=== PATIENT | female | born 1960 | race Asian ===

== ENCOUNTER → 2023-11-27 08:08 | Outpatient (REF) | payer OTHER, SELFPAY | LOC: RCS 08:08 | PROVIDERS: ATTENDING PHYSICIAN Internal Medicine | DX: I45.10 Unspecified right bundle-branch block (principal); C50.911 Malignant neoplasm of unspecified site of right female breast | CPT/HCPCS: 93306; 93356 ==

== ENCOUNTER → 2024-04-01 10:30 | Outpatient (REF) | payer OTHER, SELFPAY | LOC: RCS 10:30 | PROVIDERS: ATTENDING PHYSICIAN Internal Medicine; FAMILY PHYSICIAN Family Medicine | DX: I25.10 Atherosclerotic heart disease of native coronary artery without angina pectoris (principal); R55 Syncope and collapse; R07.9 Chest pain, unspecified; R06.02 Shortness of breath | CPT/HCPCS: 93017; 93350 ==

== ENCOUNTER 2024-12-12 22:00 | Inpatient (IN) | payer OTHER, SELFPAY ==
[2024-12-12] VITALS (7 sets, daily range): BP systolic 96–161; BP diastolic 63–85; BMI 27.0; BMI 23.0
[2024-12-12 16:57] LABS: Hematocrit 35.8 % (37.0-47.0); Hemoglobin 11.8 g/dL (12.0-16.0); Mean Corp Hgb Conc. 33.0 g/dL (33.0-37.0); Mean Corpuscular Volume 96.8 fL (81.0-99.0); Nucleated Red Blood Cells % 0 %; Platelet Count 220 10^3/uL (130-400); Red Cell Dist. Width 12.3 % (11.5-14.5)
[2024-12-12 17:12] LABS: ALT (SGPT) 22 U/L (0-35); AST (SGOT) 22 U/L (14-36); Albumin 4.1 g/dl (3.5-5.0); Alkaline Phosphatase 44 U/L (38-126); Blood Urea Nitrogen 18 mg/dl (7-17); Calcium 8.6 mg/dl (8.4-10.2); Carbon Dioxide 27 mmol/L (22-30); Chloride 108 mmol/L (98-107); Glucose 106 mg/dl (70-99); Potassium 3.6 mmol/L (3.5-5.1); Sodium 139 mmol/L (135-145); Total Protein 6.5 g/dl (6.3-8.2); eGFR > 60.00
--- NOTE | 2024-12-12 19:23 | ED.GENMED ---
History of Present Illness
General
Chief Complaint: Bowel Problem
Source: patient
Exam Limitations: none
Time Seen by Provider: 12/12/24 18:44
Nursing documentation reviewed up to this point in time: agreed with
History of Present Illness
History of Present Illness:
Patient is a 64-year-old female with history of diabetes, vertigo, stage III breast cancer, history of Katy esophagitis presents to the ER for evaluation of black stools. She reports she started with diarrhea about 4 days ago which was black in
color diarrhea stopped she still has dark stool. She did have dark stool today. She does complain of some abdominal cramping. Patient also reports she does feel very weak and not herself .
she reports she had this black stool years ago when she was being treated for breast cancer with chemotherapy back in 2020. She believes she had a colonoscopy which showed bleeding polyps at that time .
She denies any history of reflux. She is not on blood thinners.
Past History
Past History
ED Past Medical History: HTN, Hypercholesterolemia, NIDDM, Hypothyroidism and Other (Breast cancer, vertigo, neuropathy)
ED Past Surgical History: Other (surgery for breast cancer)
Social History
Tobacco: Non-smoker
Alcohol: None
Drug: None
Personal:
Living: with family
Employment: Not employed
Family History
Family History: Other (Her father had a stroke)
Phy Exam
General Physical Exam
General Presentation: no apparent distress
General age: appears stated age
General Skin: warm and dry
General Habitus: normal
General Mental: alert
General Hydration: appears well hydrated
Gastrointestinal Exam
Gastrointestinal Exam: normal bowel sounds, non tender, soft and other (rectal done : no stool in vault )
Musculoskeletal Exam
Musculoskeletal Exam: full ROM
Skin Exam
Skin Exam: normal color and warm/dry
Psychiatric Exam
Psychiatric Exam: normal mood/affect
Course
Orders/Labs/Results
Orders:
Orders
12/12/24 Breakfast
Clear Liquid
At Your Request: Limited Participation
Does patient need a safe tray?: No
12/12/24 16:41
Complete Blood Count/With Diff Urgent
Comprehensive Metabolic Panel Urgent
12/12/24 21:10
Pantoprazole [Protonix IV] 40 mg IV NOW STA
12/12/24 21:15
0.9% Sodium Chloride 1000 ml [Nss] 1,000 ml IV 999 mls/hr
Pantoprazole 80 mg/100 ml Nss [Protonix] 80 mg in 100 ml IV Q10H
12/12/24 21:24
Electrocardiogram (*1) Stat
Reason for Study: Other
Other Reason for Exam: chest pain
EKG- Treatment ONCE
12/12/24 21:44
Admit/Transfer Patient As Directed
Co-Sign Provider:
Level of Care: Inpatient admission
Assign to:: Medical/Surgical
Physician / Group: Misael
Diagnosis: GI Bleed
Reason for Hospitalization: GI Consult
Expected length of stay greater than two midnights?: Yes
ELOS- Estimated Length of Stay in days: 3
I certify the patient meets the requirements for IP care: Yes
PRN Pain Medication Management As Directed
May give lesser potent ordered pain med per pt: Yes
preference::
Protocol:: Medication orders for pain may be administered in a
manner that supports deferring to patient preference
when the pt is:
- Requesting an ordered lesser potent pain medication.
Least to most potent pain medications are defined
as: acetaminophen < NSAID < tramadol < opioids
(morphine, oxycodone, hydromorphone).
- Requesting a lesser dose of the same medication IF
ORDERED.
- Requesting a less intrusive route of administration
if both routes are prescribed by the provider (PO <
IV).
12/12/24 21:46
Code Status As Directed
Resuscitation Status: Full Code
12/12/24 22:58
Acetaminophen [Tylenol] 650 mg PO Q4HPRN PRN
Ondansetron Injectable [Zofran] 4 mg IV Q6HPRN PRN
12/12/24 22:58
Activity As Directed
Activity Level: Out of Bed- Chair
Hemetest Stools As Directed
Comment: Notify Physician of any positive results; May Stop if Negative x 3
I&O [Intake/ Output] As Directed
Frequency: q12h
Pneumatic Compression Sleeves As Directed
Type: Knee high
Vital Signs As Directed
Frequency: Per unit guidelines
DX Deep Vein Thrombosis Video Routine
12/13/24 Breakfast
NPO
Allow oral meds: Yes
Allow clear liquids: 4hrs prior to procedure
Comment: may have unrestricted clear liquid up to 4 hrs prior to scheduled procedure
Basic Metabolic Panel IN AM
Complete Blood Count/No Diff IN AM
Hgba1c [Glycohemoglobin (HgbA1c)] IN AM
Levothyroxine [Synthroid] 100 mcg PO ThSa@0600
12/13/24 08:00
Pantoprazole [Protonix IV] 40 mg IV Q12H
12/14/24 06:00
Levothyroxine [Synthroid] 50 mcg PO SuMoTuWeFr@0600
Abnormal Lab Results
12/12/24
16:41
RBC 3.70 L 10^6/uL
(4.20-5.40)
Hgb 11.8 L g/dL
(12.0-16.0)
Hct 35.8 L %
(37.0-47.0)
MCH 31.9 H pg
(27.0-31.0)
Chloride 108 H mmol/L
(98-107)
BUN 18 H mg/dl
(7-17)
Glucose 106 H mg/dl
(70-99)
12/12/24 16:41
12/12/24 16:41
Vital Signs
Initial and Last Documented VS:
Initial Vital Signs
Temp Pulse Resp BP Pulse Ox
98.2 F 72 16 145/78 98
12/12/24 16:33 12/12/24 16:33 12/12/24 16:33 12/12/24 16:33 12/12/24 16:33
Last Documented Vital Signs
Temp Pulse Resp BP Pulse Ox
98.0 F 72 18 161/85 96
12/12/24 23:07 12/12/24 23:07 12/12/24 23:07 12/12/24 23:07 12/12/24 23:07
Towboat Captain consulted with Physician
Towboat Captain consulted with physician?: Yes (jenny )
MDM/Problems Addressed
Differential Diagnosis Includes:
Not limited to anemia, GI bleed
MDM/Problems Addressed:
As documented patient is a 62-year-old female presenting with weakness and black stools for the past 4 days. She is not actively bleeding and there is no obvious stool rectal exam however with complaints of weakness and black stools would recommend
admission. Case discussed ED physician IV Protonix bolus and drip ordered.
*Pulse Oximetry
SaO2: 97
Oxygen Mode of Delivery: Room air
Patient hypoxic: no
*EKG
Interpreted by ED Provider?: Yes
Heart Rate: 73
Rate: normal
Rhythm: sinus
Ischemia: non-specific ST changes
*Critical Care Note
Total Time (30-74mins, 75-104mins- exclusive of procedures): Not Applicable
Data Reviewed
Review of Other/Old Records Reveals: Labs and Other (Previous endoscopy from 2020 reviewed)
Source: patient
ED Attending Note
-
Portions of this chart may have been created with voice recognition software.� Occasional wrong word or��sound alike� substitutions may have occurred due to the inherent limitations of voice recognition software.
Discharge Plan
Departure
Patient Disposition: Admit
Date of Disposition: 12/12/24
Time of Disposition: 21:21
Admit to: Telemetry
Admit to doctor: hospitalist
Presentation/result/management discussed w/ accepting MD/DO: Hospitalist
Patient with high blood pressure during this ER visit?: No
Condition: Fair
Covid-19: Not Applicable
Discharge Problem:
Black stool, Weakness
Interventions
Interventions:
*Risk Screen - Suicide Last Done: 12/12/24 16:33
*General Assessment Last Done: 12/12/24 18:06
*Neglect/Abuse Screening Last Done: 12/12/24 16:33
*ED- Fall Risk Assessment Last Done: 12/12/24 18:06
*ED COVID-19 Vaccine History Last Done: 12/12/24 18:06
*Nursing Disposition Last Done: 12/12/24 23:46
PW-Nuznaw-Rsvjhcxari Assessment Last Done: 12/12/24 18:05
Discharge Date and Time
Discharge Date/Time: 12/12/24 23:00
[2024-12-12] MEDS: NSS 1000 IV (21:04)
--- NOTE | 2024-12-12 21:27 | HPS.HSE ---
Addendum entered and electronically signed by Herberth Douglas DO 12/12/24 22:55:
Patient seen and examined independently. Agree with findings and plan as set forth by Rochelle Thompson PA-C.
Patient is a 64y F with PMH significant for hypothyroidism, breast cancer and impaired fasting glucose who presents to ED complaining of black stools x 4 days. Patient reports initial black diarrhea with crampy abdominal pain about 4 days ago.
Diarrhea and abdominal pain have since resolved. Continues to have black stools - now formed. No lightheadedness / dizziness. No chest pain / dyspnea.
Ass:
Melena - Suspected UGIB
Hypothyroidism
Impaired Fasting Glucose
History of Breast Cancer - s/p completed treatment
Plan:
Admit for further evaluation and treatment.
Vital signs / Hgb stable at present.
PPI infusion started in the ED - can change to BID PPI once gtt completed.
GI consulted for possible endoscopic examination.
Original Note:
Family Physician
-
Family Physician: Gregorio Castellano MD
Chief Complaint
-
Black Stools
History of Present Illness
Patient is a 64 y/o female past medical history of hyperlipidemia, pre-diabetes, hypothyroidism, breast cancer and prior GI bleed due to richard esophagitis who presents with black stools. Patient reports she had an episode of black stools about a
month ago which resolved. She reports four days ago she developed diarrhea described as black in color which was associated with crampy abdominal discomfort. She reports diarrhea has improved but her stools are still black. She deneis any chest
pains, palpitations, dizziness of shortness of breath.
Medical History
Past Medical History
Past Medical History: Reports Other
Additional Past Medical History:
Hyperlipidemia
Pre-Diabetes
Hypothyroidism
Breast Cancer
Richard Esophagitis
Past Surgical History: Reports Other
Social History
Tobacco: Non-smoker
Alcohol: None
Family History
Family History: Not pertinent
Allergies / Home Medications
Allergies reflects when Allergies were last updated in [employer].
Home Medications with original date entered in [facility]
Allergy/Medication List:
Allergies
Allergy/AdvReac Type Severity Reaction Status Date / Time
atorvastatin Allergy Unknown Verified 12/12/24 21:30
chondroitin sulfate A (From Allergy Unknown Verified 12/12/24 21:30
DuoVisc Visco Elastic)
ezetimibe Allergy Unknown Verified 12/12/24 21:30
hyaluronic acid (From Allergy Unknown Verified 12/12/24 21:30
DuoVisc Visco Elastic)
interferon beta-1a (From Allergy Unknown Verified 12/12/24 16:34
Avonex)
latex Allergy Unknown Verified 12/12/24 16:34
moxifloxacin (From Avelox) Allergy dizzy Verified 12/12/24 16:34
pravastatin Allergy Unknown Verified 12/12/24 21:30
iv dye Allergy gums Uncoded 12/12/24 16:34
swelled
seasonal Allergy nasal Uncoded 12/12/24 16:34
congestion/itchy
eyes
Home Medications
azelastine 137 mcg (0.1 %) nasal spray 1 spray intranasal DAILY 02/05/23
clindamycin phosphate 1 % topical solution (Cleocin T) 1 applic topical BID PRN RASH 02/05/23
diclofenac sodium 1 % topical gel 4 g topical BID 02/05/23
fluticasone propionate 50 mcg/actuation nasal spray,suspension 2 spray intranasal BID 02/05/23
levothyroxine 50 mcg tablet 50 mcg PO QMWFSU 02/05/23
levothyroxine 50 mcg tablet 100 mcg PO .Sunday02/05/23
loratadine 10 mg tablet 10 mg PO DAILY 02/05/23
olopatadine 0.2 % eye drops 1 drp ophthalmic (eye) DAILY 02/05/23
triamcinolone acetonide 0.1 % topical cream 1 applic topical DAILY PRN RASH 02/05/23
meclizine 25 mg tablet 25 mg PO Q8HPRN PRN vertigo #15 tabs 02/06/23
cholecalciferol (vitamin D3) 50 mcg (2,000 unit) tablet 50 mcg PO DAILY 12/12/24
evolocumab 140 mg/mL subcutaneous pen injector (Repatha YiClick) 140 mg SC Q2W 12/12/24
lifitegrast 5 % eye drops in a dropperette (Xiidra) 1 drp ophthalmic (eye) BID 12/12/24
neomycin 3.5 mg/g-polymyxin B 10,000 unit/g-dexameth 0.1 % eye oint 1 applic ophthalmic (eye) HS 12/12/24
perfluorohexyloctane (PF) 100 % eye drops 1 drp ophthalmic (eye) QID 12/12/24
varenicline tartrate 0.03 mg/spray metered nasal spray 1 spray intranasal Q12H 12/12/24
Review of Systems
-
A 12 point ROS was completed and negative except as noted: Yes
Constitutional: Denies Fever or Chills
Respiratory: Denies Cough or Trouble Breathing
Cardiac: Denies Chest Pain or Palpitations
Abdomen/GI: Reports See HPI
Physical Exam
Vital Signs
Vital Signs
Temp Pulse Resp BP Pulse Ox
98.2 F 74 20 116/77 95
12/12/24 16:33 12/12/24 21:00 12/12/24 21:00 12/12/24 21:00 12/12/24 21:00
Physical Exam
General: Comfortable and Conversant
HEENT: Anicteric and Moist mucous membranes
Respiratory: Clear and Non Labored Respirations
Cardiac: S1/S2 and Regular Rhythm; No Tachycardia
GI: Soft and Non Tender
Rectal: Other (No stool in rectal vault per ED provider)
Musculoskeletal: No Clubbing and No Cyanosis
Skin: Warm and Dry
Neuro: Awake, Alert, Oriented and Nonfocal/grossly intact
Psych: Calm
Laboratory Results
-
12/12/24 16:41
12/12/24 16:41
Laboratory Results
Total Bilirubin 0.6 mg/dl (0.2-1.3) 12/12/24 16:41
AST 22 U/L (14-36) 12/12/24 16:41
ALT 22 U/L (0-35) 12/12/24 16:41
Alkaline Phosphatase 44 U/L (38-126) 12/12/24 16:41
Data Reviewed
-
Lab Data: Labs Reviewed by me
Impression/Plan
-
Black Stools, suspect Upper GI Bleed given patients prior history
-Consult GI
-Monitor serial Hgb
-Protonix drip started in ED - Will transition to Protonix 40mg IV BID
-Allow clears tonight then NPO after midnight for possible EGD tomorrow
Pre-Diabetes
-Check HgbA1c
Hypothyroidism
-Continue levothyroxine
Hx Breast Cancer s/p chemotherapy
DVT proph: SCDs
Code Status: Full Code
[2024-12-12] MEDS: PROTONIX IV 40 MG IV (21:30)
[2024-12-12] MEDS: PROTONIX 100 IV (21:30)
[2024-12-12] MEDS: NSS IV (23:32)
[2024-12-13] MEDS: SYNTHROID 100 MCG PO (05:44)
--- NOTE | 2024-12-13 07:05 | CON.GI ---
Addendum entered and electronically signed by Tyree Blevins MD 12/13/24 09:33:
Patient seen and examined, agree with nurse practitioner note. The patient is a 64-year-old female past medical history DM who presents with dark stools. She was having black stools about a month ago that resolved, then was having some darker
looser foul-smelling stools about 5 days ago. She is not had any further since then and has been feeling well. She is not had any nausea or vomiting or abdominal pain. Overnight her hemoglobin has remained essentially normal and stable. On exam
she has no tenderness and has heme-negative brown stool now. At this point doubt any significant ongoing active bleeding. Given her previous dark stools though would plan eventual outpatient endoscopy and if negative then colonoscopy. After
discussion she will follow-up with her primary senior infrastructure engineer at [place] for this. Will advance her diet and is okay to DC from a GI standpoint. Will sign off for now, please go back with any further questions.
Original Note:
Consultation
-
Date/Time Consultation Requested: 12/12/242257
Date/Time Consultation Performed: 12/13/24 0706
Requesting Provider: SURESH Borja
Performing Provider: Dr. Blevins/RUTH Dailey
Reason for Consultation: melena/GIB
Medical History
Chief Complaint / HPI
Chief Complaint: black stools
History of Present Illness:
64-year-old female with past medical history of DM, CAD, right bundle branch block, hyperlipidemia, stage III right breast cancer, HER2 positive (January 2020 and treated with chemo and radiation through 2021), B12 deficiency, vertigo, hypothyroidism
saw in 2020 for epigastric discomfort and diagnosed her with Katy esophagitis (2020), who currently presents to the emergency room with complaints of black stools. We are asked to evaluate for the same. The patient states that approximately 1
month ago she had solid black stools. She states that these resolved. She denies any Pepto-Bismol or iron use. She then states that approximately 5 days ago she started having abdominal cramping that was relieved by defecation. She started
having loose, black, sticky stools that were foul-smelling approximately 3-4 times a day. She denied any fever, chills, vomiting, hematochezia, dysphagia or dyne aphasia. No early satiety or unintentional weight loss. She did have some mild
nausea during that time.. These resolved approximately 2 days ago. She was seen by her produce service team member yesterday and was complaining of fatigue and weakness. Because of this she came to the emergency room for further evaluation. There she was found
to have a hemoglobin of 11.8. The ER tried to perform a rectal however there was no stool in rectal vault. She did have a bowel movement last night that was solid. She was given 1 L of IV fluid in the emergency room. Repeat hemoglobin this
morning was 11.9. I did perform a rectal exam myself with a very small amount of hard brown stool. Stool for occult blood was negative. Her last EGD was in 2020 performed here that showed Katy esophagitis. She was treated with Diflucan at
that time. She is not on any PPI however has no upper GI issues that warrant this. She did have duodenal biopsies that showed villous blunting however celiac serologies showed Tissue transglutaminase IgA 13.4 (within normal limits), tissue
transglutaminase IgG antibody 20.6 (elevated), Endomesial IgA antibody titer (<1: 10). IgA 95 (WNL). She has no issues with gluten. She follows with GI at [place]. Her last colonoscopy was performed in 2020. She was told that she had 'benign
polyps' and was told to have a repeat colonoscopy in 10 years.
Past Medical History
Past Medical History: Other (impaired fasting glucose, CAD, right bundle branch block, hyperlipidemia, right-sided breast cancer, B12 deficiency, vertigo, hypothyroidism, Katy esophagitis (2020))
Past Surgical History: Other (Chest wall port status post removal, left breast lumpectomy, right breast biopsy, right mastectomy, right breast implant)
Social History
Tobacco: Non-Smoker
Alcohol: None
Drug: None
Family History
Family History: Other (Family history gastrointestinal malignancy or IBD)
Allergies / Home Medications
Allergy/AdvReac Type Severity Reaction Status Date / Time
atorvastatin Allergy Unknown Verified 12/12/24 21:30
chondroitin sulfate A (From Allergy Unknown Verified 12/12/24 21:30
DuoVisc Visco Elastic)
ezetimibe Allergy Unknown Verified 12/12/24 21:30
grass pollen Allergy nasal Verified 12/12/24 23:00
congestion/itchy
eyes
hyaluronic acid (From Allergy Unknown Verified 12/12/24 21:30
DuoVisc Visco Elastic)
interferon beta-1a (From Allergy Unknown Verified 12/12/24 16:34
Avonex)
Iodinated Contrast Media Allergy IV Verified 12/12/24 23:00
DYE-GUMS
SWELLED
latex Allergy Unknown Verified 12/12/24 16:34
moxifloxacin (From Avelox) Allergy dizzy Verified 12/12/24 16:34
pravastatin Allergy Unknown Verified 12/12/24 21:30
�Medication �Instructions �Recorded
azelastine 137 mcg (0.1 %) nasal 1 spray intranasal DAILY 02/05/23
spray
clindamycin phosphate 1 % topical 1 applic topical BID PRN RASH 02/05/23
solution (Cleocin T)
diclofenac sodium 1 % topical gel 4 g topical BID 02/05/23
fluticasone propionate 50 2 spray intranasal BID 02/05/23
mcg/actuation nasal
spray,suspension
levothyroxine 50 mcg tablet 50 mcg PO QMWFSU 02/05/23
levothyroxine 50 mcg tablet 100 mcg PO .Sunday02/05/23
loratadine 10 mg tablet 10 mg PO DAILY 02/05/23
olopatadine 0.2 % eye drops 1 drp ophthalmic (eye) DAILY 02/05/23
cholecalciferol (vitamin D3) 50 50 mcg PO DAILY 12/12/24
mcg (2,000 unit) tablet
evolocumab 140 mg/mL subcutaneous 140 mg SC Q2W 12/12/24
pen injector (García Robins)
lifitegrast 5 % eye drops in a 1 drp ophthalmic (eye) BID 12/12/24
dropperette (Xiidra)
neomycin 3.5 mg/g-polymyxin B 1 applic ophthalmic (eye) HS 12/12/24
10,000 unit/g-dexameth 0.1 % eye
oint
perfluorohexyloctane (PF) 100 % 1 drp ophthalmic (eye) QID 12/12/24
eye drops
varenicline tartrate 0.03 mg/spray 1 spray intranasal Q12H 12/12/24
metered nasal spray
Review of Systems
-
All other systems: A 12 pt ROS was Negative except as stated above in HPI
Vital Signs
Temp Pulse Resp BP Pulse Ox
98.0 F 72 18 161/85 96
12/12/24 23:07 12/12/24 23:07 12/12/24 23:07 12/12/24 23:07 12/12/24 23:07
Physical Exam
Exam
General: No Apparent Distress
HEENT: Anicteric
Respiratory: Clear
Cardiac: Regular Rhythm
GI: Soft, Non Tender, Non Distended and Normal Bowel Sounds
Rectal: Hem Negative (Small pieces of hard brown stool, sieve repairer present)
Skin: Warm and Dry
Neuro: AO x 3
Psych: Calm
Results
WBC 6.9 10^3/uL (4.8-10.8) 12/12/24 16:41
Hgb 11.8 g/dL (12.0-16.0) L 12/12/24 16:41
Hct 35.8 % (37.0-47.0) L 12/12/24 16:41
MCV 96.8 fL (81.0-99.0) 12/12/24 16:41
Plt Count 220 10^3/uL (130-400) 12/12/24 16:41
Absolute Neuts (auto) 4.4 10^3/uL (1.4-6.5) 12/12/24 16:41
Sodium 139 mmol/L (135-145) 12/12/24 16:41
Potassium 3.6 mmol/L (3.5-5.1) 12/12/24 16:41
Chloride 108 mmol/L (98-107) H 12/12/24 16:41
Carbon Dioxide 27 mmol/L (22-30) 12/12/24 16:41
BUN 18 mg/dl (7-17) H 12/12/24 16:41
Creatinine 0.7 mg/dL (0.6-1.0) 12/12/24 16:41
Calcium 8.6 mg/dl (8.4-10.2) 12/12/24 16:41
Total Bilirubin 0.6 mg/dl (0.2-1.3) 12/12/24 16:41
AST 22 U/L (14-36) 12/12/24 16:41
ALT 22 U/L (0-35) 12/12/24 16:41
Alkaline Phosphatase 44 U/L (38-126) 12/12/24 16:41
Diagnostic Image Results:
none
Prior GI Procedures:
EGD: 06/15/2020 (Dr. Sainz)
- White nummular lesions in esophageal mucosa. Cells
for cytology obtained.(+ARINA stain), treated with Diflucan. Random biopsies also taken for
EoE. (Path negative EOE)
- Erythematous mucosa in the antrum. Biopsied. (Neg H Pylori, neg IM)
- Normal duodenal bulb, first portion of the duodenum
and second portion of the duodenum. Biopsied. (increased intraepithelial lymphocytes and mild villous blunting, celiac sprue cannot be ruled out).
--Tissue transglutaminase IgA 13.4 (within normal limits), tissue transglutaminase IgG antibody 20.6 (elevated), Endomesial IgA antibody titer (<1: 10). IgA 95 (WNL)
Colonoscopy: Colonoscopy performed approximately 2000 at [facility]. Records unavailable to us.Patient reported normal. Was told repeat follow-up in 10 years.
Assessment / Plan
-
64-year-old female with past medical history of DM, CAD, right bundle branch block, hyperlipidemia, stage III right breast cancer, HER2 positive (January 2020 and treated with chemo and radiation through 2021), B12 deficiency, vertigo, hypothyroidism
saw in 2020 for epigastric discomfort and diagnosed her with Katy esophagitis (2020), who currently presents to the emergency room with postdose of black stools. We are asked to evaluate for the same.The patient had no stool in her rectal vault
in the emergency room. Hemoglobin at time of arrival in ER was 11.8, repeat pending. Baseline hemoglobin (although from reports 2022 and prior runs anywhere from 12-13), BUN 18, vital signs stable, pulse 72, blood pressure 161/85. Patient is not
on any beta-blockers. She was given a Protonix bolus as well as drip. This was switched over to pantoprazole 40 mg IV twice daily. She was also given 1 L of IV fluids in the emergency room and was kept n.p.o. after midnight. Rectal exam performed
by me small amount of hard brown stool. OB negative. Repeat hemoglobin increased at 11.9.
Impression:
Black stools, self-reported 1 month ago with repeat episodes approximately 5 days ago. Resolved. Currently with brown hard OB negative stool.
--> Hemoglobin stable, actually slightly improved
Abdominal cramping, resolved with defecation
History of right-sided breast cancer status, right mastectomy, chemo and radiation (completed treatment 2021)
Prior history of Katy esophagitis (2020 while on treatment for breast cancer)
Plan:
-Recommend continuing pantoprazole
-Discussed EGD, inpatient versus outpatient.
-Further recommendations to be forthcoming
-Can start clear liquids, no red.
-
-
Thank you for consultation and allowing me to participate in the patient's care. Please call the production intern GI physician during the after hours with any questions or concerns.
[2024-12-13 07:10] VITALS: BP 134/68
[2024-12-13 07:39] LABS: Hematocrit 35.0 % (37.0-47.0); Hemoglobin 11.9 g/dL (12.0-16.0); Mean Corp Hgb Conc. 34.0 g/dL (33.0-37.0); Mean Corpuscular Volume 95.4 fL (81.0-99.0); Platelet Count 217 10^3/uL (130-400); Red Cell Dist. Width 12.0 % (11.5-14.5)
[2024-12-13] MEDS: NSS (PRESERVATIVE FREE) 10 ML IV (07:51)
[2024-12-13] MEDS: PROTONIX IV 40 MG IV (07:56)
[2024-12-13 08:07] LABS: Blood Urea Nitrogen 12 mg/dl (7-17); Calcium 8.5 mg/dl (8.4-10.2); Carbon Dioxide 25 mmol/L (22-30); Chloride 111 mmol/L (98-107); Estimated Creatinine Clearance 63 ml/min; Glucose 99 mg/dl (70-99); Potassium 3.7 mmol/L (3.5-5.1); Sodium 140 mmol/L (135-145); eGFR > 60.00
--- NOTE | 2024-12-13 10:06 | W.PN.HOSP.TC ---
Today's Communication/Plan
-
Discharge
Assessment / Plan
Assessment / Plan
Gen-AAOx3, NAD
HEENT-NC, AT, anicteric, clear oral mm
Neck-supple
CV-reg, no M, +S1/S2
Lungs-clear B/L
Abd-soft, NT, ND
Ext-no edema
Musculoskeletal-no cyanosis, clubbing
Skin-warm and dry
Neuro-grossly non-focal
Psych-calm, cooperative
Subacute upper GI bleed -presentation with melena. Hemodynamically stable. Discussed with GI attending today, heme-negative stool noted. No indication for transfusion.
GI recommends discharge with outpatient follow-up with her usual content editor in [place].
Patient okay with plan. Diet resumed.
Impaired fasting glucose
Hypothyroidism -levothyroxine.
History of breast cancer
Full code
Dispo -medically stable for discharge, follow-up with PCP and GI.
31 minutes spent in discharge process.
Anticipated Discharge: Today
Subjective/Interval History
-
Date of Service: December 13, 2024
Patient seen and examined. No complaints. Does have melena.
Objective Data
-
Labs:
Laboratory Results
12/13/24
07:03
WBC 5.3
Hgb 11.9 L
Hct 35.0 L
Plt Count 217
Sodium 140
Potassium 3.7
Chloride 111 H
Carbon Dioxide 25
BUN 12
Creatinine 0.6
Glucose 99
Calcium 8.5
Vital Signs:
Vital Signs
Temp Pulse Resp BP Pulse Ox
97.8 F 66 14 134/68 95
12/13/24 07:10 12/13/24 07:10 12/13/24 07:10 12/13/24 07:10 12/13/24 07:10
Review of Systems
-
History Source: Patient
All other systems: Reviewed and negative
--- NOTE | 2024-12-13 10:15 | W.DS.TRANS ---
DC Summary - Director Environmental
-
Discharge Instructions:
Discharge Diagnosis/Procedures GI bleed
Diet Regular
Activity As tolerated
Driving Restrictions As prior to admission
Bathing Restrictions None
Instructions:
Stand-Alone Forms:
Changes to Home Medications: No
Discharge Medications:
DC Medications w/original date entered in [employer]
azelastine 137 mcg (0.1 %) nasal spray 1 spray intranasal DAILY NASAL 02/05/23
clindamycin phosphate 1 % topical solution (Cleocin T) 1 applic topical BID PRN RASH 02/05/23
diclofenac sodium 1 % topical gel 4 g topical BID Pain 02/05/23
fluticasone propionate 50 mcg/actuation nasal spray,suspension 2 spray intranasal BID INFLAMMATION 02/05/23
levothyroxine 50 mcg tablet 50 mcg PO QMWFSU Thyroid 02/05/23
levothyroxine 50 mcg tablet 100 mcg PO .SUNDAY Thyroid 02/05/23
loratadine 10 mg tablet 10 mg PO DAILY Allergies 02/05/23
olopatadine 0.2 % eye drops 1 drp ophthalmic (eye) DAILY Eye Condition 02/05/23
cholecalciferol (vitamin D3) 50 mcg (2,000 unit) tablet 50 mcg PO DAILY Supplement 12/12/24
evolocumab 140 mg/mL subcutaneous pen injector (Repatha SureClick) 140 mg SC Q2W Antilipemic Agent 12/12/24
lifitegrast 5 % eye drops in a dropperette (Xiidra) 1 drp ophthalmic (eye) BID Eye Condition 12/12/24
neomycin 3.5 mg/g-polymyxin B 10,000 unit/g-dexameth 0.1 % eye oint 1 applic ophthalmic (eye) HS Eye Condition 12/12/24
perfluorohexyloctane (PF) 100 % eye drops 1 drp ophthalmic (eye) QID Eye Condition 12/12/24
varenicline tartrate 0.03 mg/spray metered nasal spray 1 spray intranasal Q12H Cholinergic Agonist 12/12/24
pantoprazole 40 mg tablet,delayed release (Protonix) 40 mg PO BID #60 tabs 12/13/24
Home Medication Changes
Pending Results: No
[2024-12-13 10:16] LABS: Glycohemoglobin (HgbA1c) 6.0 % (4.0-5.6)
[2024-12-13 11:30] VITALS: BP 111/59
--- NOTE | 2024-12-13 17:02 | CM ---
Addendum entered by Ana Holland RN 12/13/24 17:07:
The patient drove herself to the hospital and plans on driving herself home.
Original Note:
Patient with Dx Subacute upper GI bleed.
Met with patient who resides alone in a 2 story house.
Her daughter Nery is home from college for the summer and staying with her until Feb.
The patient was independent in ADLs and ambulation.
The patient's only DME ia a TENS machine and pump for neuropathy.
No prior VN.
PCP - Harika Castellano
Pharmacy - [facility]
The patient says she feels ready for discharge home today.
No CM d/c needs identified.
Plan home today.
== END 2024-12-13 13:29 | disposition home or self-care (01) | DRG 379 ==
LOC: 4 EAST ACU 22:00
PROVIDERS: Physician Assistant Medical; ADMITTING PHYSICIAN Hospitalist; ATTENDING PHYSICIAN Hospitalist; CONSULT PHYSICIAN Internal Medicine Gastroenterology; EMERGENCY PHYSICIAN Emergency Medicine; FAMILY PHYSICIAN Family Medicine
DX: K92.2 Gastrointestinal hemorrhage, unspecified (principal); E03.9 Hypothyroidism, unspecified; E78.00 Pure hypercholesterolemia, unspecified; I10 Essential (primary) hypertension; I25.10 Atherosclerotic heart disease of native coronary artery without angina pectoris; I45.10 Unspecified right bundle-branch block; E53.8 Deficiency of other specified B group vitamins; R73.01 Impaired fasting glucose; J30.2 Other seasonal allergic rhinitis; Z88.1 Allergy status to other antibiotic agents; Z91.040 Latex allergy status; Z88.8 Allergy status to other drugs, medicaments and biological substances; Z82.3 Family history of stroke; Z92.21 Personal history of antineoplastic chemotherapy; Z85.3 Personal history of malignant neoplasm of breast; Z79.890 Hormone replacement therapy; Z92.3 Personal history of irradiation; Z17.31 Human epidermal growth factor receptor 2 positive status; Z98.82 Breast implant status; Z90.11 Acquired absence of right breast and nipple; Z91.041 Radiographic dye allergy status; Z80.0 Family history of malignant neoplasm of digestive organs
CPT/HCPCS: 80048; 80053; 83036; 85025; 85027; 93005; 96365; 96366; 99284